=== PATIENT | male | born 1945 | race Caucasian/White ===

== ENCOUNTER → 2020-03-17 13:39 | Outpatient (CLI) | payer MEDICARE, OTHER, SELFPAY ==
[2020-03-17 15:22] LABS: BUN Creatinine Ratio 21.6 (6-22); Blood Urea Nitrogen 19 mg/dL (9-20); Calcium 9.9 mg/dL (8.4-10.2); Carbon Dioxide 20 mmol/L (22-32); Chloride 108 mmol/L (98-107); Estimated Glomerular Filt Rate > 60.0 mL/min (>60); Glucose 121 mg/dL (80-110); HEMOLYSIS < 15 (0-50); Potassium 4.2 mmol/L (3.4-5.1); Sodium 138 mmol/L (137-145)
[2020-03-17 15:51] LABS: Prostate Specific Antigen 1.86 ng/mL (0.10-4.00)
== END ==
PROVIDERS: Referring Provider Specialist; Visit Provider Specialist
DX: N20.0 Calculus of kidney (principal)
CPT/HCPCS: 36415; 80048; 84153

== ENCOUNTER → 2020-03-28 12:44 | Outpatient (CLI) | payer MEDICARE, OTHER, SELFPAY ==
--- NOTE | 2020-03-28 12:48 | DI.RAD.S_ITS ---
PROCEDURE: XR KUB INDICATIONS: kidney stone TECHNIQUE: One view of the abdomen acquired. COMPARISON: [facility], CR, XR ABDOMEN 1 VIEW, 02/06/2018, 9:03. FINDINGS: Surgical changes and devices: Extensive pelvic surgical clips bilaterally.. Bowel: Bowel gas pattern is normal except for colonic obstipation greater on the left than the right. Soft tissues: No suspicious abdominal calcifications. Visualized solid organ contours appear normal in size. Bones: No suspicious bony lesions. IMPRESSION: No urinary tract stone identified. Asymmetric left greater than right colonic obstipation. Extensive surgical clips positioning along the pelvic sidewalls bilaterally. These were previously present. Dictated by: Mendez Hart M.D. on 03/28/2020 at 13:14 Approved by: Mendez Hart M.D. on 03/28/2020 at 13:15
== END ==
PROVIDERS: Referring Provider Specialist; Visit Provider Specialist
DX: N20.0 Calculus of kidney (principal); K59.00 Constipation, unspecified
CPT/HCPCS: 74018

== ENCOUNTER → 2021-04-16 10:16 | Outpatient (CLI) | payer MEDICARE, OTHER, SELFPAY ==
--- NOTE | 2021-04-16 11:09 | DI.CT.S_ITS ---
PROCEDURE: CT KIDNEY URETER BLADDER (KUB) INDICATIONS: renal calculi TECHNIQUE: Axial sections were acquired from the lung bases to the pubic symphysis. Coronal and sagittal reformats were performed. For radiation dose reduction, the following was used: automated exposure control, adjustment of mA and/or kV according to patient size. COMPARISON:[facility], CT, CT ABD PELVIS W CON, 11/04/2015, 8:15. FINDINGS: Image quality: Excellent. Lung bases: Bibasilar scarring/atelectasis is seen. Heart: Mild atherosclerotic calcifications are seen in coronary vessels. Heart size is normal, no pericardial effusion. URINARY: Right Kidney: Tiny 1-2 mm upper pole right renal calculus is seen. No hydronephrosis. Chronic mild prominence of right renal collecting system is noted without obstructing stone. Right Ureter: Chronic mild prominence of right ureter extending to ileo chondroid without obstructing ureteral stone. Left Kidney: No stones or hydronephrosis. Left Ureter: No hydroureter. 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 ABDOMEN: Liver: Unremarkable. Gallbladder: Within normal limits. Biliary ducts: Unremarkable. Pancreas: Unremarkable. Spleen: Unremarkable. Adrenal Glands: Unremarkable. 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 No evidence of bowel obstruction or abnormal bowel wall thickening. No mesenteric fat stranding. No abscess collection. Peritoneum: No abnormal intraperitoneal fluid. No free air. Ventral Wall: No hernia. Abdominal Nodes: No enlarged retroperitoneal or mesenteric lymph nodes. Vessels: Aorta and inferior vena cava are normal in size. Moderate atherosclerotic calcifications in abdominal aorta is seen. PELVIS: Pelvic Organs: Surgical clips are noted in bilateral pelvis. There is prior prostatectomy and cystectomy. Pelvic Nodes: Unremarkable. Miscellaneous: No inguinal hernias are seen. Bones: No suspicious bony lesion. 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 IMPRESSION: 1. 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 No obstructing renal stone or hydronephrosis. Tiny upper pole right renal stone. Very mild chronic prominence of right renal collecting system and right ureter extending to the level of ileo chondroid. Normal appearing left kidney and left ureter. 2. No bowel obstruction. No free fluid or free air. Dictated by: Stewart Blackwell M.D. on 04/16/2021 at 11:00 Approved by: Stewart Blackwell M.D. on 04/16/2021 at 11:28
== END ==
PROVIDERS: Referring Provider Specialist; Visit Provider Specialist
DX: M51.34 Other intervertebral disc degeneration, thoracic region (principal); N20.0 Calculus of kidney; M51.36 Other intervertebral disc degeneration, lumbar region; I70.0 Atherosclerosis of aorta; Z87.442 Personal history of urinary calculi; Z93.2 Ileostomy status; Z85.51 Personal history of malignant neoplasm of bladder
CPT/HCPCS: 74176; 99214

== ENCOUNTER → 2022-03-29 08:39 | Outpatient (CLI) | payer MEDICARE, OTHER, SELFPAY ==
--- NOTE | 2022-03-29 08:42 | DI.RAD.S_ITS ---
PROCEDURE: XR KUB INDICATIONS: calculus of kidney TECHNIQUE: One view of the abdomen acquired. COMPARISON: [facility], , XR KUB, 03/28/2020, 12:46. FINDINGS: Surgical changes and devices: Multiple surgical clips are redemonstrated throughout the pelvis. Bowel: Bowel gas pattern is normal. Soft tissues: No suspicious abdominal calcifications. Visualized solid organ contours appear normal in size. Bones: No suspicious bony lesions. IMPRESSION: No soft tissue calcifications visualized to suggest nephrolithiasis or ureterolithiasis. Dictated by: Tori Temple M.D. on 03/29/2022 at 9:51 Approved by: Tori Temple M.D. on 03/29/2022 at 9:53
== END ==
PROVIDERS: PCP Family Medicine; Referring Provider Specialist; Visit Provider Specialist
DX: N20.0 Calculus of kidney (principal); Z85.51 Personal history of malignant neoplasm of bladder; Z87.442 Personal history of urinary calculi
CPT/HCPCS: 74018; 99214

== ENCOUNTER → 2023-03-31 10:34 | Outpatient (CLI) | payer MEDICARE, OTHER, SELFPAY ==
--- NOTE | 2023-03-31 10:37 | DI.US.S_ITS ---
PROCEDURE: US RENAL COMPLETE INDICATIONS: KIDNEY STONES TECHNIQUE: Real-time scanning was performed of the kidneys and bladder, with image documentation. COMPARISON: [facility], CT, CT KIDNEY URETER BLADDER (KUB), 04/16/2021, 10:21. FINDINGS: Kidneys: Right kidney measures 11.3 cm long; left kidney measures 8.6 cm long. Right renal cortical thickness is 2.5 cm; left renal cortical thickness is 1.4 cm. No right renal stones identified sonographically. Mild right hydronephrosis. The left kidney is lobulated in appearance. Possible 3.0 cm mass at the left mid kidney versus prominent parenchymal lobulation. 4 mm calcification at the left mid kidney indeterminate for nonobstructing renal stone versus parenchymal calcification. Bladder: Surgically absent Miscellaneous: No free pelvic fluid. IMPRESSION: 1. Mild right hydronephrosis. No right renal stones identified sonographically. 2. Left kidney is lobulated in appearance as before. At the mid kidney, there is a possible 3 cm solid mass versus prominent parenchymal lobulation. Imaging follow-up to ensure stability versus characterization with renal protocol MRI or CT may be helpful. 3. Small calcification of the left mid kidney is indeterminate for a nonobstructing renal stone versus parenchymal calcification. Dictated by: Matt Murillo M.D. on 03/31/2023 at 14:18 Approved by: Matt Murillo M.D. on 03/31/2023 at 14:26
== END ==
PROVIDERS: PCP Family Medicine; Referring Provider Specialist; Visit Provider Specialist
DX: N20.0 Calculus of kidney (principal); N13.30 Unspecified hydronephrosis; Z85.51 Personal history of malignant neoplasm of bladder; Z87.442 Personal history of urinary calculi
CPT/HCPCS: 76770; 99214

== ENCOUNTER → 2024-03-19 17:44 | Outpatient (ROUT) | payer MEDICARE, OTHER, SELFPAY ==
[2024-03-19 18:13] LABS: Bilirubin Urine UA NEGATIVE (NEGATIVE); Color Urine UA YELLOW; Glucose Urine UA 2+ g/dL (Negative); Ketones Urine UA NEGATIVE (NEGATIVE); Leukocyte Esterase Urine UA 2+ (NEGATIVE); Nitrite Urine UA NEGATIVE (Negative); Occult Blood Urine UA 2+ (Negative); Protein Urine UA TRACE (Negative); pH Urine UA 7.5 (4.5-8.0)
[2024-03-19 18:15] LABS: Appearance Urine UA SL CLOUDY
[2024-03-19 18:33] LABS: Bacteria Urine Few (2-10); RBC Urine 5-10/HPF (0-5/HPF); Squamous Epithelial Cell Urine 0-1 /HPF (0-5/HPF); Urine Volume 10mL (spun); WBC Urine 10-30/HPF (0-5/HPF)
== END ==
PROVIDERS: PCP Family Medicine; Visit Provider Registered Nurse
DX: R41.0 Disorientation, unspecified (principal)
CPT/HCPCS: 81001; 87086

== ENCOUNTER → 2024-03-23 09:35 | Outpatient (ROUT) | payer MEDICARE, OTHER, SELFPAY ==
[2024-03-23 09:49] LABS: Ammonia (NH3) 100 umol/L (9-30)
== END ==
PROVIDERS: PCP Family Medicine; Visit Provider Internal Medicine
DX: G93.40 Encephalopathy, unspecified (principal)
CPT/HCPCS: 82140

== ENCOUNTER → 2024-04-04 09:36 | Outpatient (ROUT) | payer MEDICARE, OTHER, SELFPAY ==
[2024-04-04 09:53] LABS: Ammonia (NH3) 50 umol/L (9-30)
== END ==
PROVIDERS: PCP Family Medicine; Visit Provider Registered Nurse
DX: Z00.00 Encounter for general adult medical examination without abnormal findings (principal)
CPT/HCPCS: 82140

== ENCOUNTER → 2024-04-12 11:51 | Outpatient (CLI) | payer MEDICARE, OTHER, SELFPAY ==
--- NOTE | 2024-04-12 11:53 | DI.US.S_ITS ---
PROCEDURE: US RENAL COMPLETE INDICATIONS: mild right hydronephrosis TECHNIQUE: Real-time scanning was performed of the kidneys and bladder, with image documentation. COMPARISON: [facility], , RENAL COMPLETE, 03/31/2023, 10:55. FINDINGS: Kidneys: Kidneys are normal in size. Right kidney measures 11.0 cm long; left kidney measures 9.2 cm long. Right renal cortical thickness is 1.3 a cm; left renal cortical thickness is 1.0 cm. Renal cortical echotexture is normal. Similar mild hydronephrosis within the right kidney. There is a 2.8 x 2.6 x 2.1 cm lobulated lesion within the left kidney that previously measured 3.0 x 2.1 x 2.6 cm. No significant interval change in the appearance of this oval lesion. Bladder: Absent. Miscellaneous: No free pelvic fluid. IMPRESSION: 1. No significant interval change in mild right hydronephrosis. 3. No significant interval change in the lobulated lesion within the left kidney that measures up to 2.8 cm. This may represent a parenchymal lobulation. If clinically indicated, an MRI of the kidneys can be performed for further characterization. Dictated by: Rajiv Portillo M.D. on 04/13/2024 at 9:49 Approved by: Rajiv Portillo M.D. on 04/13/2024 at 10:00
== END ==
LOC: US 11:52
PROVIDERS: PCP Family Medicine; Referring Provider Specialist; Visit Provider Specialist
DX: N13.30 Unspecified hydronephrosis (principal); N28.9 Disorder of kidney and ureter, unspecified; Z85.51 Personal history of malignant neoplasm of bladder; Z90.6 Acquired absence of other parts of urinary tract
CPT/HCPCS: 76770

== ENCOUNTER → 2025-03-28 08:45 | Outpatient (CLI) | payer MEDICARE, OTHER, SELFPAY ==
--- NOTE | 2025-03-28 08:46 | DI.US.S_ITS ---
PROCEDURE: US RENAL COMPLETE INDICATIONS: RIGHT HYDRONEPHROSIS TECHNIQUE: Real-time scanning was performed of the kidneys and bladder, with image documentation. COMPARISON: [facility], CT, CT KIDNEY URETER BLADDER (KUB), 04/16/2021, 10:21. [facility], US, US RENAL COMPLETE, 04/12/2024, 12:03. FINDINGS: Kidneys: Kidneys are normal in size. Right kidney measures 11 cm long; left kidney measures 10 cm long. Right renal cortical thickness is 2.0 cm; left renal cortical thickness is 1.5 cm. Renal cortical echotexture is increased. No hydronephrosis or nephrolithiasis. Prominent left renal lobulation versus solid mass measuring 3.1 x 2.5 x 2.2 centimeter, previously measuring 2.8 x 2.6 x 2.1 centimeter. Bladder: Cystectomy present. Miscellaneous: No free pelvic fluid. IMPRESSION: No hydronephrosis. Prominent left renal lobulation versus solid mass, which has demonstrated interval growth compared with prior. Recommend CT or MRI with contrast to exclude malignancy (renal mass protocol). Dictated by: Geronimo Merino M.D. on 03/28/2025 at 11:47 Approved by: Geronimo Merino M.D. on 03/28/2025 at 11:51
== END ==
PROVIDERS: PCP Family Medicine; Referring Provider Family Medicine; Visit Provider Urology
DX: R93.422 Abnormal radiologic findings on diagnostic imaging of left kidney (principal); N13.30 Unspecified hydronephrosis; Z85.51 Personal history of malignant neoplasm of bladder; Z90.6 Acquired absence of other parts of urinary tract
CPT/HCPCS: 76770